=== PATIENT | female | born 1940 | race Caucasian/White ===

== ENCOUNTER 2021-02-09 14:36 | Emergency (ER) | payer MEDICARE, MEDICAID, SELFPAY ==
--- NOTE | ~2021-02-09 | XR_ITS ---
XR foot RT min 3V 02/09/2021 15:18 INDICATION: Right foot pain PROCEDURE: 4 views right foot COMPARISON: No prior studies for comparison. FINDINGS: Fracture, dislocation or subluxation is not identified. Lisfranc joint is intact. The soft tissues appear within normal limits. No foreign bodies are identified. IMPRESSION: 1: NO ACUTE BONE OR JOINT ABNORMALITY IDENTIFIED. Reviewed, dictated and finalized at location A. [employer]
--- NOTE | 2021-02-09 14:48 | ED.GENADULT ---
HPI - General Adult General Chief complaint: Extremity Injury, Lower Stated complaint: Right Foot Injury Time Seen by Provider: 02/09/21 14:48 Source: patient Mode of arrival: ambulatory Limitations: no limitations History of Present Illness HPI narrative: 80-year-old female patient presents to the [facility] with complaints of right foot pain and ankle pain x1 week. Daughter states that she hit her foot on a rocker about a week ago and since then has been having pain. She iced it one time is been taking Tylenol for pain. Coming in today to make sure is not broken. Related Data Home Medications Medication Instructions Recorded Confirmed allopurinol 02/09/21 amlodipine 02/09/21 atorvastatin 02/09/21 calcitriol 02/09/21 hydrochlorothiazide 02/09/21 lisinopril 02/09/21 metoprolol succinate PO 02/09/21 sertraline mg 02/09/21 Allergies Allergy/AdvReac Type Severity Reaction Status Date / Time No Known Allergies Allergy Unverified 06/19/17 23:05 Review of Systems Review of Systems: CONSTITUTIONAL: Denies fever, chills, or sweats. EYES: Denies visual changes, redness, or discharge. ENT: Denies rhinorrhea, congestion, sore throat, or otalgia. CARDIOVASCULAR: Denies chest pain, palpitations, or edema. RESPIRATORY: Denies cough or dyspnea. GASTROINTESTINAL: Denies abdominal pain, nausea, vomiting, or diarrhea. GENITOURINARY: Denies dysuria or hematuria. SKIN: Denies rash or itching. MUSCULOSKELETAL: Denies back pain, joint pain, or myalgia. Positive right foot and ankle pain NEUROLOGIC: Denies headache, numbness, or weakness. PSYCHIATRIC: Denies anxiety or depression. [facility] Past Medical History Medical History (Updated 02/09/21 @ 15:29 by DIEGO Ceballos) Depression Hypercholesterolemia Hypertension Seizures Comments At the time of my signature I agree with nursing past medical history, surgical, social, and family history. There is no relevant family history pertinent to the presenting complaint. Exam Narrative: GENERAL: Well-appearing, well-nourished, and in no acute distress. HEAD: Normocephalic, atraumatic. EYES: PERRLA and EOMI. ENT: Nares clear, no rhinorrhea or epistaxis. Mucous membranes moist. NECK: Supple. No lymphadenopathy CHEST: Clear to auscultation. No respiratory distress. HEART: Regular rate and rhythm. No murmur heard. Normal peripheral pulses. ABDOMEN: Soft, nontender, nondistended, normal active bowel sounds. EXTREMITIES: Patient able to bear weight and ambulate without pain. No surface trauma, ecchymosis, erythema, lesions, ulcers or break in skin integrity. The R foot is without obvious asymmetry or deformity when compared to the L foot. No bony step-off, tender to palpation over the toes, no tenderness over the midfoot or hindfoot, tenderness over the sole. Normal plantar/dorsiflexion, inversion/eversion. Distal motor and neurovascular status are intact SKIN: Warm, dry, no rash. NEURO: No focal deficits. Alert and oriented x3. Course Vital Signs Vital signs: Vital Signs Temperature 36.3 C L 02/09/21 14:52 Pulse Rate 60 02/09/21 14:52 Respiratory Rate 20 02/09/21 14:52 Blood Pressure 115/56 L 02/09/21 14:52 Pulse Oximetry 98 02/09/21 14:52 Temperature 36.3 C L 02/09/21 14:52 Pulse Rate 60 02/09/21 14:52 Respiratory Rate 20 02/09/21 14:52 Blood Pressure 115/56 L 02/09/21 14:52 Pulse Oximetry 98 02/09/21 14:52 Vital signs reviewed Medical Decision Making Differential Diagnosis Differential Diagnosis: Differential diagnosis: Foot fracture, crush injury, compartment syndrome, contusion, sprain, tendinitis,lisfranc sprain or fracture, avulsion fracture, grown toenail, diabetic ulcer. My care for patient is to x-ray patient. Notified patient after x-ray that the x-ray is negative for any acute fractures. Discussed with patient that most likely she just contused her sprain the right foot/ankle. Plan of care is to go ahead and wrap
[2021-02-09 14:52] VITALS: BP 115/56; PULSE 60; RESP 20; TEMP 36.3; O2SAT 98
== END 2021-02-09 15:45 | disposition home or self-care (01) ==
PROVIDERS: Emergency Provider Nurse Practitioner Family; PCP Internal Medicine
DX: S93.401A Sprain of unspecified ligament of right ankle, initial encounter (principal); I10 Essential (primary) hypertension; W22.03XA Walked into furniture, initial encounter
CPT/HCPCS: 73630; 99203; G0463

== ENCOUNTER 2021-08-04 15:29 | Inpatient (IN) | payer MEDICARE, MEDICAID, SELFPAY ==
--- NOTE | ~2021-08-04 | XR_ITS ---
EXAMINATION: XR chest 2V Exam Date/Time: 08/09/2021 12:18 CDT HISTORY: Shortness of breath Comparison: 08/07/2021. CT chest 08/06/2021. RESULT: Lines, tubes, and devices: Intact sternotomy wires. Mediastinal surgical clips. Lungs and pleura: Worsened lobulated right pleural fluid collection, with possible pleural masses. A djacent pulmonary opacities, likely representing atelectasis. Cardiomediastinal silhouette: Stable cardiomediastinal silhouette, including the known thoracic aort ic aneurysm. Other: No acute osseous or upper abdominal finding. IMPRESSION: Moderate volume loculated right pleural effusion, increased since the comparison. Likely pleural mass es. Reviewed, dictated and finalized at location K. IMPRESSION: Moderate volume loculated right pleural effusion, increased since the compariso n. Likely pleural masses.
--- NOTE | ~2021-08-04 | XR_ITS ---
EXAMINATION: [id number] DATE: 08/07/2021 15:47 INDICATION: Status post right thoracentesis TECHNIQUE: frontal view of the chest was obtained. COMPARISON: Chest radiograph dated 08/04/[address] dated 08/06/2021 FINDINGS: Decreased opacities in the right mid and lower lung consistent with decrease in size of a small locul ated right pleural effusion with associated atelectasis post thoracentesis. On prior CT some of the o pacities appear to correspond to pleural-based soft tissue deposits suspicious for metastatic disease . No pneumothorax or left-sided pleural effusion. Heart size is normal. Aneurysmal and tortuous thora cic aorta which displaces portion of the medial left lower lung. Median sternotomy wires and mediasti nal surgical clips are seen, likely from prior coronary artery bypass grafting. Old healed proximal l eft humeral fracture deformity. IMPRESSION: 1. Decrease in size of a small loculated right pleural effusion post thoracentesis with no pneumothor ax. 2. Opacities in the right mid to lower lung zone due in part to atelectasis although on prior CT ther e are pleural-based soft tissue deposits, the largest at the posterior sulcus which is concerning for pleural-based metastatic disease or mesothelioma. 3. Aneurysmal and tortuous thoracic aorta. Reviewed, dictated and finalized at location A. IMPRESSION: 1. Decrease in size of a small loculated right pleural effusion post thoracente sis with no pneumothorax. 2. Opacities in the right mid to lower lung zone due in part to atelectasis alt jeanine on prior CT there are pleural-based soft tissue deposits, the largest at the posterior sulcus which is concerning for pleural-based metastatic disease o r mesothelioma. 3. Aneurysmal and tortuous thoracic aorta.
--- NOTE | ~2021-08-04 | US_ITS ---
EXAMINATION: US thoracentesis DATE: 08/07/2021 16:04 INDICATION: Unilateral right pleural effusion TECHNIQUE: The procedure and its risks and benefits were discussed with the patient in the patient's daughter. Potential risks discussed included bleeding, infection, and pneumothorax. The patient's maria jackson understood the risks and agreed to proceed providing verbal and written consent. The skin was p repped and draped in sterile fashion. 1% lidocaine was used for local anesthesia. Under ultrasound gu idance, a 5 Fr catheter with trochar was advanced into the complex multiloculated right pleural effus ion. Fluid was aspirated. The catheter was removed, and a dressing was applied. There were no immedia te complications. FINDINGS: Ultrasound images demonstrate a multiloculated complex right pleural effusion and the catheter within the fluid. IMPRESSION: 1. Successful ultrasound-guided thoracentesis yielding 700 mL of clear aewliia-myvce-cicjeet fluid. Reviewed, dictated and finalized at location A. IMPRESSION: 1. Successful ultrasound-guided thoracentesis yielding 700 mL of clear reddish -katiuska-colored fluid.
--- NOTE | ~2021-08-04 | US_ITS ---
EXAMINATION: US aorta DATE: 08/05/2021 13:16 INDICATION: Palpable abdominal mass. TECHNIQUE: Grayscale, color Doppler, and pulsed Doppler images of the aorta and common iliac arteries were obtained. COMPARISON: CT abdomen and pelvis 06/20/2017 FINDINGS: The aorta demonstrates a 6.9 cm fusiform aneurysm. The right common iliac artery is normal in caliber . The left common iliac artery is normal in caliber. IMPRESSION: 1. 6.9 cm suprarenal aneurysm of abdominal aorta that measured 6.5 cm on 06/20/2017. Reviewed, dictated and finalized at location B. IMPRESSION: 1. 6.9 cm suprarenal aneurysm of abdominal aorta that measured 6.5 cm on 018.
--- NOTE | ~2021-08-04 | CT_ITS ---
EXAMINATION: CT diagnostic chest wo con DATE: 08/06/2021 10:24 INDICATION: Shortness of breath. Hypoxia. TECHNIQUE: Computed tomography (CT) of the chest was performed without intravenous contrast. Automate d exposure control and iterative reconstruction technique were employed. Exam dose: 150.74 mGy-cm to celestina exam DLP. COMPARISON: 08/04/2021 AP and lateral chest 08/05/2021 pulmonary perfusion scan FINDINGS: There is extensive calcification of the thoracic aorta, great vessels and coronary arteries there is extensive calcification of the subclavian and axillary arteries. Normal diameter of the ascending aorta and aortic arch. There is a saccular aneurysm at the junction of the posterior aortic arch and descending thoracic aorta. There is up to 6.2 cm aneurysm at the cyndi ction of the descending thoracic and abdominal aorta. Up to 6.5 x 6.7 cm proximal abdominal aortic an eurysm. There is severe calcification of the celiac and splenic arteries and calcification of the hep atic artery. Status post sternotomy and coronary artery bypass graft surgery. No hilar or mediastinal mass lesion or lymphadenopathy is evident. There is a large right pleural effusion extending into the right apex and greater and minor fissures. There is associated compressive atelectasis of the right lung. The left lung is clear.. Mild cardiomegaly. There are moderate compression fracture deformities of T6, T8 and T9. Diffuse osteopenia. IMPRESSION: Thoracic and abdominal aortic aneurysm Cardiomegaly Status post sternotomy and coronary bypass graft surgery Very large right pleural effusion with associated right lung compressive atelectasis Impression fractures of T6, T8 and T9; osteopenia Reviewed, dictated and finalized at Location A. Reviewed, dictated and finalized at location A. IMPRESSION: Thoracic and abdominal aortic aneurysm Cardiomegaly Status post sternotomy and coronary bypass graft surgery Very large right pleural effusion with associated right lung compressive atelec tasis Impression fractures of T6, T8 and T9; osteopenia
--- NOTE | ~2021-08-04 | NM_ITS ---
EXAMINATION: NM pulmonary perfusion DATE: 08/05/2021 12:24 INDICATION: Hypoxia TECHNIQUE: 5 mCi Tc-99m MAA by intravenous route. Scintigraphic images of the chest were obtained. COMPARISON: Chest radiograph dated 08/04/[address] abdomen and pelvis dated 06/20/2017 FINDINGS: There is a moderate-sized perfusion defect at the posterior medial left lower lobe which appears to c orrespond to a tortuous and aneurysmal thoracic aorta. Large perfusion defect extending obliquely acr oss the right mid to lower lung along the course of the major fissure and smaller horizontal linear p erfusion defect extending anteriorly along the course of the minor fissure. Additional fusion defects along the anterior, posterior and lateral periphery of the right right mid to lower lung zone. There are corresponding airspace opacities on the radiographs to at least in part to a small right pleural effusion. IMPRESSION: 1. Intermediate probability for pulmonary embolism. Reviewed, dictated and finalized at location A.
--- NOTE | ~2021-08-04 | XR_ITS ---
EXAMINATION: XR chest 2V DATE: 08/04/2021 15:52 INDICATION: Shortness of breath. Chest pain. TECHNIQUE: Frontal and lateral views of the chest were obtained. COMPARISON: CT abdomen and pelvis 06/20/2017 FINDINGS: There are airspace opacities in right mid and lower lung zones. There is a small loculated right pleural effusion. The pneumothorax. The heart size is normal. There is calcified atherosclerosi s of the aorta, which is tortuous. Median sternotomy wires and mediastinal surgical clips are seen, l ikely from prior coronary artery bypass grafting. IMPRESSION: 1. Airspace opacities in right mid and lower lung zones, consistent with atelectasis versus pneumonia . 2. Small loculated right pleural effusion. Reviewed, dictated and finalized at location B. IMPRESSION: 1. Airspace opacities in right mid and lower lung zones, consistent with atelec tasis versus pneumonia. 2. Small loculated right pleural effusion.
[2021-08-04 15:28] VITALS: BP 135/87; PULSE 76; RESP 21; TEMP 36.8; O2SAT 98
--- NOTE | 2021-08-04 15:34 | ECG_ITS ---
Measurements Intervals [place] Rate: 78 P: LA: 0 QRS: 0 QRSD: 86 T: -1 QT: 399 QTc: 455 Interpretive Statements SINUS ARRHY[address]MIA ST DEVIATION AND MODERATE T-WAVE ABNORMALITY, CONSIDER ANTERIOR ISCHEMIA [-0.1+ mV T WAVE IN V3/V4] NO PREVIOUS ECG AVAILABLE FOR COMPARISON Electronically Signed On 08-04-2021 16:34:59 CDT by Tim Brown M.D.
--- NOTE | 2021-08-04 16:07 | ED.SOB ---
HPI - SOB/Dyspnea General Chief Complaint: Shortness of Breath/Dyspnea Stated Complaint: SOB/Right sided pain Time Seen by Provider: 08/04/21 15:57 History of Present Illness HPI Narrative: Pt presents with complaint of SOB for the last two weeks. Pt went to her PCP today and pulse ox in 70's and 80's. Pt denies CP or fever. Pt has dry cough. Pt has some right sided neck pain. Pt vomited three times earlier today. Related Data Home Medications Medication Instructions Recorded Confirmed allopurinol 100 mg tablet 02/09/21 amlodipine 10 mg tablet 02/09/21 atorvastatin 40 mg tablet 02/09/21 calcitriol 0.25 mcg capsule 02/09/21 hydrochlorothiazide 12.5 mg tablet 02/09/21 lisinopril 10 mg tablet 02/09/21 metoprolol succinate 200 mg PO 02/09/21 tablet,extended release 24 hr sertraline 100 mg tablet mg 02/09/21 cefuroxime axetil 250 mg tablet tablet 08/04/21 ciprofloxacin HCl 500 mg tablet tablet 08/04/21 ergocalciferol (vitamin D2) 1,250 cap 08/04/21 mcg (50,000 unit) capsule furosemide 20 mg tablet tablet 08/04/21 rivastigmine 4.6 mg/24 hour patch 08/04/21 transdermal patch (Exelon Patch) Allergies Allergy/AdvReac Type Severity Reaction Status Date / Time No Known Allergies Allergy Unverified 06/19/17 23:05 Review of Systems Review of Systems: All systems reviewed & are unremarkable except as noted in HPI and below PMFSH Past Medical History Medical History (Updated 08/04/21 @ 18:20 by Sb Henriquez III, DO) Depression Hypercholesterolemia Hypertension Seizures Exam Const: General: healthy appearing and no acute distress Nutritional Appearance: well nourished Limitations: other limitations (some dementia) HENMT: Mouth: Yes Normal oral and palatal mucosa present Neck: Neck: normal visual inspection, no lymphadenopathy and no meningeal signs Chest: Chest palpation & inspection: normal inspection of the chest Resp: Effort & Inspection: normal respiratory effort Auscultation: crackles Cardio: Rate: regular rate Rhythm: regular rhythm GI: GI Palp: Yes Soft to palpation Auscultation: normal bowel sounds Skin: General skin exam: normal color Rashes: no rashes Neuro: General: patient oriented x3, moves all extremities, no meningeal signs and no focal motor deficits Speech: normal speech Extrem: General: normal to inspection and no clubbing, cyanosis or edema Psych: Mental Status: mental status grossly normal Affect: normal affect Attitude: cooperative Course Vital Signs Vital signs: Vital Signs Temperature 98.2 F 08/04/21 15:28 Pulse Rate 76 08/04/21 15:28 Respiratory Rate 21 H 08/04/21 15:28 Blood Pressure 135/87 08/04/21 15:28 Pulse Oximetry 98 08/04/21 15:28 Oxygen Delivery Nasal Cannula 08/04/21 15:28 Oxygen Flow Rate 2 08/04/21 15:28 Temperature 98.2 F 08/04/21 15:28 Pulse Rate 76 08/04/21 15:28 Respiratory Rate 21 H 08/04/21 15:28 Blood Pressure 135/87 08/04/21 15:28 Pulse Oximetry 98 08/04/21 15:28 Oxygen Delivery Nasal Cannula 08/04/21 15:28 Oxygen Flow Rate 2 08/04/21 15:28 MDM - SOB/Dyspnea Lab Data Result diagrams: 08/04/21 16:26 08/04/21 16:26 Labs: Lab Results 08/04/21 08/04/21 08/04/21 Range/Units 16:26 16:26 16:26 WBC 8.6 (4.5-10.0) K/mm3 RBC 3.98 L (4.2-5.4) M/mm3 Hgb 11.7 L (12.0-15.0) g/dL Hct 36.5 L (37.0-47.0) % MCV 91.7 (80-100) fl MCH 29.4 (26-34) pg MCHC 32.1 (32-36) g/dl RDW 16.0 H (11.5-14.5) % Plt Count 255 (150-375) k/mm3 MPV 10.0 (7.4-10.4) fl Immature Gran % (Auto) 0.5 (0-0.5) % Neut % (Auto) 74.6 H (45.5-73.1) % Lymph % (Auto) 13.8 L (18.3-44.2) % [place] % (Auto) 8.6 H (2.6-8.5) % Eos % (Auto) 2.2 (0-4.4) % Baso % (Auto) 0.3 (0.2-1.2) % Lymph # (Auto) 1.18 (0.9-3.2) K/mm3 [place] # (Auto) 0.7 H (0.1-0.6) K/mm3 Eos # (Auto) 0.2 (0-0.3) K
[2021-08-04 16:35] LABS: Basophils Percent Auto 0.3 % (0.2-1.2); Eosinophils Absolute Auto 0.2 K/mm3 (0-0.3); Eosinophils Percent Auto 2.2 % (0-4.4); Hematocrit 36.5 % (37.0-47.0); Hemoglobin 11.7 g/dL (12.0-15.0); Immature Granulocyte Absolute 0.04 K/mm3 (0.00-0.031); Immature Granulocyte Percent A 0.5 % (0-0.5); Lymphocytes Absolute Auto 1.18 K/mm3 (0.9-3.2); Lymphocytes Percent Auto 13.8 % (18.3-44.2); Mean Corpuscular HGB Conc 32.1 g/dl (32-36); Mean Corpuscular Hemoglobin 29.4 pg (26-34); Mean Corpuscular Volume 91.7 fl (80-100); Monocytes Absolute Auto 0.7 K/mm3 (0.1-0.6); Monocytes Percent Auto 8.6 % (2.6-8.5); Neutrophils Absolute Auto 6.4 K/mm3 (1.3-6.7); Neutrophils Percent Auto 74.6 % (45.5-73.1); Platelet Count Result 255 k/mm3 (150-375); Red Blood Count 3.98 M/mm3 (4.2-5.4); White Blood Count 8.6 K/mm3 (4.5-10.0)
[2021-08-04 16:53] LABS: Alanine Aminotransferase 17 U/L (6-35); Albumin Level 3.7 g/dL (3.5-5.1); Alkaline Phosphatase 102 U/L (38-126); Anion Gap 9 mmol/L (8-16); Aspartate Amino Transferase 28 U/L (14-36); Bilirubin,Total 0.5 mg/dL (0.2-1.3); Blood Urea Nitrogen 29 mg/dL (7-17); Calcium 9.1 mg/dL (8.4-10.2); Carbon Dioxide 26 mmol/L (22-30); Chloride 105 mmol/L (98-107); Estimated CRCL calculation 24 ml/min; Estimated Glomerular Filt Rate 39; Glucose 114 mg/dL (65-110); Potassium 3.8 mmol/L (3.4-5.0); Sodium 140 mmol/L (137-145)
[2021-08-04 17:01] LABS: NT Pro B Type Natriuretic Pept 1150 pg/mL (5-100)
[2021-08-04] MEDS: NITROGLYCERIN OINTMENT 1 INCH DOSE TRANSDERM (17:04)
[2021-08-04] MEDS: ONDANSETRON INJ 4 MG/2 ML VIAL IV PUSH (17:04)
[2021-08-04] MEDS: ASPIRIN 325 MG TABLET PO (17:04)
[2021-08-04 17:14] LABS: Troponin I 0.015 ng/mL (0.000-0.034)
--- NOTE | 2021-08-04 17:27 | PC.NURSE ---
food tray ordered
[2021-08-04] MEDS: FUROSEMIDE INJ 40 MG/4 ML VIAL IV PUSH (19:09)
[2021-08-04 20:54] LABS: SARS-CoV-2 RNA PCR Negative
--- NOTE | 2021-08-04 20:57 | PM.IMHP ---
H&P: HPI History of Present Illness Date/Time: 08/04/21 20:57 Chief Complaint: Hypoxia Narrative: 81-year-old female with a complex past medical history including chronic kidney disease, CHF, coronary artery disease status CABG and dementia as well as other medical problems who presented to the ER from primary care physician's office due to low oxygen saturations. Source of information comes from patient's family member who also happens be ER nurse, limited past medical records and ER records. The patient herself is a poor historian and is only alert oriented to self and knows that she is in the hospital but does not know the hospital. She knows that her son-in-law works at the hospital. She is oriented to the year. Her son-in-law reports that the patient's memory has gotten progressively worse over the course of the last year. The patient has been having a couple of weeks of increased work of breathing. The she has noticed some a dyspnea on exertion. She denies any orthopnea. She has not had any significant lower some leg swelling. She did fall 2-3 weeks ago in landed on her right arm and side. Since that time she has complained of pain in her right flank. The pain extends across to the left flank as well and is worse when she stands up to walk or sits up. She does seem a little bit more uncomfortable when she takes a deep breath as well. She has had a dry cough. She has not had any fevers or chills. She denies any dysuria or changes in urinary frequency. Patient is noted have some conversational tachypnea. Her daughter told nursing staff that she did not know the patient had history of CHF but the patient is on Lasix at home. Patient denies any changes in urinary frequency but does have a history of bladder prolapse. She reports that she did have a couple of episodes of vomiting today. She has an emesis bag at bedside. She reports a decreased appetite for 3 days. She denies any sore throat or difficulty swallowing. Review of Systems Review of Systems: 12 systems were reviewed with pertinent positives and negatives per HPI. Except as documented in the HPI, all other systems were reviewed and are negative. 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 Bladder prolapse Cholelithiasis Chronic kidney disease, stage 3 Congestive heart failure Dementia Depression Gout Hypercholesterolemia Hypertension Intracranial aneurysm Seizures Vitamin D deficiency Surgical History Surgical History (Updated 08/05/21 @ 02:15 by Sondra Staples DO) History of craniotomy For aneurysm repair Hx of CABG Proximally [id number] Family History Family History Other Unknown family medical history Social History Social History (Updated 08/05/21 @ 02:24 by Sondra Staples DO) Social History: Code status: The patient has 1 daughter stated that the patient was a DNR/DNI. However patient's healthcare power of traveling buyer called nursing staff after patient was admitted and stated the patient should be a full code. Smoking packs per day: 1 Smoking cigarettes per day: 20.0 Smoking status: Former smoker Alcohol intake: never Substance use: never Additional living arrangements comments: She lives with her 1 daughter who is her POA. She a had a total of 6 children. One of her sons recently from a drug overdose. Spiritual care concerns: No Meds Home Medications and Allergies Home Medications Medication Instructions Recorded Confirmed Type allopurinol 100 mg tablet 100 mg PO DAILY 02/09/21 08/05/21 History amlodipine 10 mg tablet 10 mg PO DAILY 02/09/21
[2021-08-04 22:16] LABS: Troponin I 0.017 ng/mL (0.000-0.034)
[2021-08-04 22:43] VITALS: BP 108/83; PULSE 71; RESP 18; O2SAT 92; BMI 26.4
--- NOTE | 2021-08-04 23:35 | ADMGEN ---
This patient, Estefanía Chauhan, was admitted to IMU Room 205-02. Patient/family oriented to hospital policies and general routines including ID bracelet, bed and alarms, visiting hours, pain management, procedures, bathroom and other care routines, personal items, smoking policy, room service/diet, and visiting hours. Information on how to activate the Rapid Response Team has been discussed. Patient/Family are encouraged to report perceived risks to care and to ask questions if they do not understand what they are told or what they should do.
[2021-08-05] VITALS (17 sets, daily range): BP systolic 89–117; BP diastolic 60–72; PULSE 68–93; RESP 16–22; TEMP 36.1–36.6; O2SAT 92–98
--- NOTE | 2021-08-05 | ECHO_ITS ---
Patient Info Name: Estefanía Chauhan Age: 81 years : 1940 Gender: Female Ht: 59 in Wt: 130 lbs BSA: 1.58 m2 HR: 76 bpm BP: 96 / 61 mmHg Heart Rhythm: Sinus Rhythm Technical Quality: Fair Exam Date: 08/05/2021 7:20 AM Exam Location: [facility] Pulmonary Patient Status: Inpatient Admit Date: 08/04/2021 Staff Ordering Physician: Sondra Staples DO Wax Pumper: Elizabeth Sebastian RDCS Attending Provider: Lesvia Benito MD Referring Physician: Jhoan SONG; Exam Type: CA echo doppler color flow Study Info Indications - CHF Complete two-dimensional, color flow and Doppler transthoracic echocardiogram is performed. Summary 1. Complete two-dimensional, color flow and Doppler transthoracic echocardiogram is performed. 2. Normal LV size, mild LVH, sigmoid hypertrophy; hyperdynamic LV systolic function, ejection fraction more than 70%. Grade 1 diastolic dysfunction. Mild left atrial enlargement. Atrial septum deviated to left consistent with elevated right atrial pressures. Mild mitral annular calcification, trace MR. Aortic valve sclerosis, mild stenosis by Doppler, maximum velocity 1.7 m/sec, mean gradient 6 mmHg, calculated aortic valve area 1.9 cm2; mild aortic regurgitation. Mild tricuspid regurgitation, moderate pulmonary hypertension, RVSP 53 mmHg. Mild pulmonic regurgitation. Abdominal aorta appears to be dilated. Consider CT chest/abdomen to evaluate aorta if clinically appropriate. Left Ventricle Left ventricular chamber dimension is normal. Left ventricular systolic function is hyperdynamic, estimated at >70%. There is mildly increased left ventricular wall thickness. The left ventricular diastolic function is grade I diastolic dysfunction. Right Ventricle Right ventricular chamber dimension is normal. Right ventricular systolic function is normal. Aortic Valve There is moderate aortic valve sclerosis. There is mild aortic valve regurgitation. Pulmonic Valve The pulmonic valve is not well visualized. There is mild pulmonic regurgitation. Mitral Valve The mitral valve has normal leaflets. There is trace mitral valve regurgitation. The mitral valve annulus is mildly calcified. Tricuspid Valve The tricuspid valve leaflets are normal. There is mild tricuspid valve regurgitation. Moderate pulmonary hypertension, estimated pulmonary arterial systolic pressure is 53 mmHg. Inferior Vena Cava Normal inferior vena cava with >50% collapse upon inspiration consistent with normal right atrial pressure, 10 mmHg. Aorta The aortic root size at the sinus of Valsalva is normal. The abdominal aorta size is dilated. There is moderate aortic atherosclerosis. Left Ventricular Outflow Tract Name Value Normal LVOT 2D LVOT Diameter 2.0 cm LVOT Doppler LVOT Peak Gradient 5 mmHg LVOT Mean Gradient 2 mmHg LVOT VTI 19 cm LVOT VTI/AV VTI Ratio 0.6 LVOT Stroke Volume 60 ml LVOT CO 4.8 l/min LVOT CI 3
[2021-08-05 01:17] LABS: Troponin I 0.017 ng/mL (0.000-0.034)
[2021-08-05 05:13] LABS: Basophils Percent Auto 0.4 % (0.2-1.2); Eosinophils Absolute Auto 0.4 K/mm3 (0-0.3); Hematocrit 33.3 % (37.0-47.0); Hemoglobin 10.5 g/dL (12.0-15.0); Immature Granulocyte Absolute 0.03 K/mm3 (0.00-0.031); Immature Granulocyte Percent A 0.4 % (0-0.5); Lymphocytes Absolute Auto 1.76 K/mm3 (0.9-3.2); Lymphocytes Percent Auto 22.7 % (18.3-44.2); Mean Corpuscular HGB Conc 31.5 g/dl (32-36); Mean Corpuscular Hemoglobin 28.8 pg (26-34); Mean Corpuscular Volume 91.5 fl (80-100); Mean Platelet Volume 10.6 fl (7.4-10.4); Monocytes Absolute Auto 0.9 K/mm3 (0.1-0.6); Monocytes Percent Auto 11.2 % (2.6-8.5); Neutrophils Absolute Auto 4.7 K/mm3 (1.3-6.7); Neutrophils Percent Auto 60.3 % (45.5-73.1); Platelet Count Result 220 k/mm3 (150-375); Red Blood Count 3.64 M/mm3 (4.2-5.4); Red Cell Distribution Width 15.9 % (11.5-14.5); White Blood Count 7.8 K/mm3 (4.5-10.0)
[2021-08-05 05:27] LABS: Anion Gap 10 mmol/L (8-16); Blood Urea Nitrogen 33 mg/dL (7-17); Calcium 8.7 mg/dL (8.4-10.2); Carbon Dioxide 27 mmol/L (22-30); Chloride 105 mmol/L (98-107); Estimated Glomerular Filt Rate 31; Glucose 96 mg/dL (65-110); Potassium 3.3 mmol/L (3.4-5.0); Sodium 142 mmol/L (137-145)
[2021-08-05] MEDS: ASPIRIN 81 MG ENTERIC TABLET PO (09:31)
[2021-08-05] MEDS: allopurinoL 100 MG TABLET PO (09:31)
[2021-08-05] MEDS: calcitrioL 0.25 MCG CAPSULE PO (09:32)
[2021-08-05] MEDS: ENOXAPARIN 30 MG/0.3 ML SYRINGE SUB-Q (09:32)
[2021-08-05] MEDS: RIVASTIGMINE TARTRATE 4.6 MG PATCH 1 PATCH TRANSDERM (09:32)
--- NOTE | 2021-08-05 12:09 | PM.IMPN ---
Progress Note: A&P Assessment and Plan (1) Hypoxia: Code(s): R09.02 - Hypoxemia Status: Acute Assessment and Plan: Patient presents to the emergency room after she was found to be hypoxic at the doctor's office. Patient was hypoxic requiring supplemental oxygen but did not appear to be in acute respiratory failure clinically. Chest x-ray shows right middle lobe and right lower lobe airspace disease with small right loculated pleural effusion. Atelectasis vs PNA. She was having emesis so consider aspiration. PNA seems less likely since no fever or elevated white count. Consider related to CHF and atelectasis. Could be trauma related given her fall with lung contusin. Wean oxygen as tolerated. Encourage incentive spirometer use. Probably needs CT chest to further determine etiology. VQ scan ordered to exclude PE possibly. (2) Acute exacerbation of CHF (congestive heart failure): Code(s): I50.9 - Heart failure, unspecified Status: Acute Assessment and Plan: BNP 1150. CXR as mentioned above. NTP stopped. Lasix held due to soft BP. Echo showing EF 70%, Grade 1 diastolic dysfunction, mild valvular disease and moderate pulmonary hypertension.? Abdominal aorta appears to be dilated.?Trop negative x3. Wean O2 as tolerated. Stop lasix (3) Abnormal ECG: Code(s): R94.31 - Abnormal electrocardiogram [ECG] [EKG] Status: Acute Assessment and Plan: EKG reviewed showing ST and T wave changes in the anterior leads. Trop negative. Echo as above. No previous EKGs to compare. 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 She was sent to [place] at that time and they are monitoring the aneurysm. Palpable on exam. Check abdominal US. (5) Chronic kidney disease, stage 3: Code(s): N18.30 - Chronic kidney disease, stage 3 unspecified Status: Acute Assessment and Plan: Cr 1.3 on admission and now up to 1.6 with Lasix. Will stop IV Lasix. Follow for now. Resume oral lasix if Cr stable and BP allows. Hold lisinopril. (6) Dementia: Code(s): F03.90 - Unspecified dementia without behavioral disturbance Status: Acute Assessment and Plan: Patietn alert, pleasant but mildly confused. Continue Exelon. Plan DVT Prophylaxis: Lovenox Code status: Full Subjective Date/time seen: 08/05/21 12:09 Interval history: 81yo female with hx of dementia, HTN, CKD and seizures here for shortness of breath. She feels her shortness of breath is better. She is not on oxygen at home. She denies any chest pain, palpitations or cough. No nausea or vomiting. Eating well. She is able to lie flat without feeling short of breath. Called by nurse earlier this morning due to low blood pressure. Lisinopril and Lasix were held. Exam Narrative: AF 97.1 101/60 78 18 98% ra Gen - NARD Chest -bibasilar inspiratory crackles. CV - RRR S1/S2. Telemetry showing sinus rhythm with sinus arrhythmia. Abd -soft. Positive bowel sounds. Palpable mass in the midline that is pulsatile. No bruits. Ext - No pedal edema Psych - Nml mood and affect. Alert, pleasant and cooperative. Skin - Warm and dry Objective Data Vital Signs Vital Signs: Vital Signs - 24 hr 08/04/21 15:28 08/04/21 22:43 08/05/21 00:00 Temperature 98.2 F 97.8 F Pulse Rate 76 71 76 Respiratory Rate 21 H 18 22 H Blood Pressure 135/87 108/83 93/67 L Pulse Oximetry 98 92 92 Oxygen Delivery Nasal Cannula Oxygen Flow Rate 2 08/05/21 00:00 08/05/21 02:00 08/05/21 04:00 Temperature Pulse Rate 74 76 68 Respiratory Rate Blood Pressure Pulse Oximetry Oxygen Delivery Oxygen Flow Rate 08/05/21 04:00 08/05/21 04:00 08/05/21 08
--- NOTE | 2021-08-05 12:41 | ECG_ITS ---
Measurements Intervals [place] Rate: 75 P: -38 GA: 144 QRS: 9 QRSD: 86 T: -14 QT: 386 QTc: 432 Interpretive Statements SINUS RHYTHM WITH OCCASIONAL SUPRAVENTRICULAR PREMATURE COMPLEXES LOW QRS VOLTAGE IN EXTREMITY LEADS [QRS DEFLECTION < 0.5 mV IN LIMB LEADS] ST DEVIATION AND MODERATE T-WAVE ABNORMALITY, CONSIDER ANTERIOR ISCHEMIA [-0.1+ mV T WAVE IN V3/V4] COMPARED TO ECG 08/04/2021 15:52:19 SINUS RHYTHM NOW PRESENT Electronically Signed On 08-05-2021 15:03:31 CDT by Norman Live M.D.
[2021-08-05] MEDS: POTASSIUM CHLORIDE 20 MEQ TABLET PO (13:37)
[2021-08-05] MEDS: ATORVASTATIN 40 MG TABLET PO (18:07)
[2021-08-05] MEDS: SERTRALINE HCL 50 MG TABLET 100 MG PO (18:07)
[2021-08-05] MEDS: METOPROLOL SUCCINATE EXT REL 100 MG TABCR 200 MG PO (18:07)
[2021-08-06] VITALS (12 sets, daily range): BP systolic 91–105; BP diastolic 49–71; PULSE 61–78; RESP 16–24; TEMP 35.8–37; O2SAT 90–100
[2021-08-06 05:08] LABS: Basophils Percent Auto 0.3 % (0.2-1.2); Eosinophils Absolute Auto 0.5 K/mm3 (0-0.3); Eosinophils Percent Auto 5.7 % (0-4.4); Hematocrit 34.7 % (37.0-47.0); Hemoglobin 10.8 g/dL (12.0-15.0); Immature Granulocyte Absolute 0.05 K/mm3 (0.00-0.031); Immature Granulocyte Percent A 0.6 % (0-0.5); Lymphocytes Absolute Auto 1.39 K/mm3 (0.9-3.2); Lymphocytes Percent Auto 15.6 % (18.3-44.2); Mean Corpuscular HGB Conc 31.1 g/dl (32-36); Mean Corpuscular Hemoglobin 28.9 pg (26-34); Mean Corpuscular Volume 92.8 fl (80-100); Mean Platelet Volume 10.1 fl (7.4-10.4); Monocytes Absolute Auto 0.9 K/mm3 (0.1-0.6); Monocytes Percent Auto 9.5 % (2.6-8.5); Neutrophils Absolute Auto 6.1 K/mm3 (1.3-6.7); Neutrophils Percent Auto 68.3 % (45.5-73.1); Platelet Count Result 246 k/mm3 (150-375); Red Blood Count 3.74 M/mm3 (4.2-5.4); Red Cell Distribution Width 15.9 % (11.5-14.5); White Blood Count 8.9 K/mm3 (4.5-10.0)
[2021-08-06 05:25] LABS: Albumin Level 3.1 g/dL (3.5-5.1); Anion Gap 6 mmol/L (8-16); Blood Urea Nitrogen 41 mg/dL (7-17); Calcium 8.7 mg/dL (8.4-10.2); Carbon Dioxide 28 mmol/L (22-30); Chloride 105 mmol/L (98-107); Estimated Glomerular Filt Rate 31; Glucose 100 mg/dL (65-110); Magnesium 1.7 mg/dL (1.6-2.3); Phosphorus 4.4 mg/dL (2.5-4.5); Potassium 3.9 mmol/L (3.4-5.0); Sodium 139 mmol/L (137-145)
[2021-08-06] MEDS: ASPIRIN 81 MG ENTERIC TABLET PO (08:04)
[2021-08-06] MEDS: ENOXAPARIN 30 MG/0.3 ML SYRINGE SUB-Q (08:04)
[2021-08-06] MEDS: RIVASTIGMINE TARTRATE 4.6 MG PATCH 1 PATCH TRANSDERM (08:05)
[2021-08-06] MEDS: allopurinoL 100 MG TABLET PO (08:05)
[2021-08-06] MEDS: calcitrioL 0.25 MCG CAPSULE PO (08:05)
--- NOTE | 2021-08-06 09:38 | PM.IMPN ---
Progress Note: A&P Assessment and Plan (1) Hypoxia: Code(s): R09.02 - Hypoxemia Status: Acute Assessment and Plan: Patient presents to the emergency room after she was found to be hypoxic at the doctor's office. Patient was hypoxic requiring supplemental oxygen but did not appear to be in acute respiratory failure clinically. Chest x-ray shows right middle lobe and right lower lobe airspace disease with small right loculated pleural effusion. Atelectasis vs PNA. She was having emesis so consider aspiration. PNA seems less likely since no fever or elevated white count. Consider related to CHF and atelectasis. Could be trauma related given her fall with lung contusin. Wean oxygen as tolerated. Encourage incentive spirometer use. Probably needs CT chest to further determine etiology. VQ scan with intermediate probability for PE. Moderate-sized perfusion defect at the posterior medial left lower lobe corresponding to a porch was an aneurysmal thoracic aorta. Large perfusion defect extending obliquely across the right mid to lower lung along the course of the major fissure and small or a central linear perfusion defect extending anteriorly along the course of a minor fissure. Additional fusion defects along the anterior, posterior and lateral periphery of the right mid to lower lung zone corresponding to the airspace opacities in the radiograph. CTA cannot be done due to renal dysfunction. Will do CT a diagnostic chest to rule out underlying pneumonia. Will start him on some IV antibiotics for pneumonia. Will obtain blood culture prior to antibiotics (2) Acute exacerbation of CHF (congestive heart failure): Code(s): I50.9 - Heart failure, unspecified Status: Acute Assessment and Plan: BNP 1150. CXR as mentioned above. NTP stopped. Lasix held due to soft BP. Echo showing EF 70%, Grade 1 diastolic dysfunction, mild valvular disease and moderate pulmonary hypertension.? Abdominal aorta appears to be dilated.?Trop negative x3. Wean O2 as tolerated. Stop lasix due to borderline blood pressure (3) Abnormal ECG: Code(s): R94.31 - Abnormal electrocardiogram [ECG] [EKG] Status: Acute Assessment and Plan: EKG reviewed showing ST and T wave changes in the anterior leads. Trop negative. Echo as above. No previous EKGs to compare. 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 She was sent to [place] at that time and they are monitoring the aneurysm. Palpable on exam. 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 Measures 6.5 cm on 06/20/2017. (5) Chronic kidney disease, stage 3: Code(s): N18.30 - Chronic kidney disease, stage 3 unspecified Status: Acute Assessment and Plan: Cr 1.3 on admission and now up to 1.6 with Lasix. Will stop IV Lasix. Follow for now. Resume oral lasix if Cr stable and BP allows. Hold lisinopril. (6) Dementia: Code(s): F03.90 - Unspecified dementia without behavioral disturbance Status: Acute Assessment and Plan: Patietn alert, pleasant but mildly confused. Continue Exelon. Plan DVT Prophylaxis: Lovenox Code status: Full Subjective Date/time seen: 08/06/21 09:38 Interval history: 81yo female with hx of dementia, HTN, CKD and seizures here for shortness of breath. 08/06/2021 blood pressure borderline remains afebrile. On 2 L oxygen via nasal cannula. Which remains stable. Chest x-ray with airspace opacities in right mid and lower lung zones consistent with atelectasis versus pneumonia. Small loculated right pleural effusion. Echocardiogram 08/05/2021 mild LVH sigmoid hypertrophy hyperdynamic LV systolic function EF more than 70% grade 1 d
--- NOTE | 2021-08-06 10:04 | PCSTNOTE ---
Please refer to the Bedside Swallow Evaluation in the EMR. Please note, silent aspiration cannot be ruled out at bedside.
--- NOTE | 2021-08-06 15:43 | PM.CNPUL ---
Assessment and Plan Assessment and plan (1) Hypoxia: Code(s): R09.02 - Hypoxemia Status: Acute (2) Acute respiratory failure with hypoxia: Code(s): J96.01 - Acute respiratory failure with hypoxia Status: Acute Assessment and Plan: This 81-year-old female presented with shortness of breath and hypoxemia following a fall with injury to right rib cage approximately 2-3 weeks ago. Patient has had a large right-sided pleural effusion with some loculation and lung atelectasis. She has no signs of infection. WBC has been normal. She has mild anemia and elevated eosinophils in the peripheral blood. The recent history of fall in conjunction with mild anemia and elevated eosinophils in the peripheral blood may suggest hemorrhagic pleural effusion related to injury. Patient is scheduled for thoracentesis under ultrasound guidance. Have added pleural fluid culture and cytology to pleural fluid tests. further recommendations will depend upon pleural fluid analysis. (3) Pleural effusion: Code(s): J90 - Pleural effusion, not elsewhere classified Status: Acute (4) Dementia: Code(s): F03.90 - Unspecified dementia without behavioral disturbance Status: Acute (5) Abdominal aortic aneurysm: Code(s): I71.4 - Abdominal aortic aneurysm, without rupture Status: Acute History of Present Illness History of Present Illness Consult date: 08/06/21 Chief complaint: chf Narrative: This 81-year-old female presented with shortness of breath and hypoxemia 2 days ago. The patient has history of chronic kidney disease, congestive heart failure, coronary artery disease status post coronary artery bypass grafting and mild dementia. The patient was found to have low oxyhemoglobin saturation at her primary care provider's office. Reportedly the patient fell and injured her right rib cage approximately 2-3 weeks ago. She stated that she had had pain in her right ribcage for approximately 2 weeks with the pain being worse with deep inspiration. She has had no fever chills hemoptysis night sweats chest pain or lower extremity edema. Workup with chest CT showed large right pleural effusion with some loculation and also associated lung atelectasis. The patient has been on a antibiotics for possible pneumonia. She no longer has right chest wall pain. She denied having shortness of breath while she is on supplemental oxygen. Review of Systems Review of Systems: All system review is unremarkable except as stated in H and P and below. 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 Bladder prolapse Cholelithiasis Chronic kidney disease, stage 3 Congestive heart failure Dementia Depression Gout Hypercholesterolemia Hypertension Intracranial aneurysm Seizures Vitamin D deficiency Surgical History Surgical History (Updated 08/05/21 @ 02:15 by Sondra Staples DO) History of craniotomy For aneurysm repair Hx of CABG Proximally [id number] Family History Family History Other Unknown family medical history Social History Social History (Updated 08/05/21 @ 02:24 by Sondra Staples DO) Social History: Code status: The patient has 1 daughter stated that the patient was a DNR/DNI. However patient's healthcare power of estate planning attorney called nursing staff after patient was admitted and stated the patient should be a full code. Smoking packs per day: 1 Smoking cigarettes per day: 20.0 Smoking status: Former smoker Alcohol intake: never Substance use: never Additional living arrangements comments: She lives with her 1 daughter w
[2021-08-06] MEDS: METOPROLOL SUCCINATE EXT REL 100 MG TABCR 200 MG PO (18:31)
[2021-08-06] MEDS: ATORVASTATIN 40 MG TABLET PO (18:31)
[2021-08-06] MEDS: SERTRALINE HCL 50 MG TABLET 100 MG PO (18:32)
[2021-08-07] VITALS (15 sets, daily range): BP systolic 97–138; BP diastolic 59–99; PULSE 64–76; RESP 16–18; TEMP 36.2–36.9; O2SAT 94–100
[2021-08-07 05:12] LABS: Basophils Percent Auto 0.4 % (0.2-1.2); Eosinophils Absolute Auto 0.5 K/mm3 (0-0.3); Eosinophils Percent Auto 5.7 % (0-4.4); Hemoglobin 10.7 g/dL (12.0-15.0); Immature Granulocyte Absolute 0.02 K/mm3 (0.00-0.031); Immature Granulocyte Percent A 0.2 % (0-0.5); Lymphocytes Absolute Auto 1.78 K/mm3 (0.9-3.2); Lymphocytes Percent Auto 19.9 % (18.3-44.2); Mean Corpuscular HGB Conc 31.5 g/dl (32-36); Mean Corpuscular Hemoglobin 28.9 pg (26-34); Mean Corpuscular Volume 91.9 fl (80-100); Mean Platelet Volume 10.4 fl (7.4-10.4); Monocytes Absolute Auto 0.8 K/mm3 (0.1-0.6); Monocytes Percent Auto 9.1 % (2.6-8.5); Neutrophils Absolute Auto 5.8 K/mm3 (1.3-6.7); Neutrophils Percent Auto 64.7 % (45.5-73.1); Platelet Count Result 236 k/mm3 (150-375); Red Cell Distribution Width 15.7 % (11.5-14.5); White Blood Count 8.9 K/mm3 (4.5-10.0)
[2021-08-07 05:30] LABS: Alanine Aminotransferase 13 U/L (6-35); Albumin Level 3.1 g/dL (3.5-5.1); Alkaline Phosphatase 77 U/L (38-126); Anion Gap 4 mmol/L (8-16); Aspartate Amino Transferase 24 U/L (14-36); Bilirubin,Total 0.2 mg/dL (0.2-1.3); Blood Urea Nitrogen 45 mg/dL (7-17); Calcium 8.7 mg/dL (8.4-10.2); Carbon Dioxide 28 mmol/L (22-30); Chloride 107 mmol/L (98-107); Estimated Glomerular Filt Rate 29; Glucose 97 mg/dL (65-110); Potassium 3.8 mmol/L (3.4-5.0); Sodium 139 mmol/L (137-145)
[2021-08-07 10:17] LABS: INR 1.1; Prothrombin Time 13.9 Seconds (11.1-14.7)
[2021-08-07 10:18] LABS: Partial Thromboplastin Time 30.9 SECONDS (22.3-36.8)
[2021-08-07] MEDS: allopurinoL 100 MG TABLET PO (10:50)
[2021-08-07] MEDS: ASPIRIN 81 MG ENTERIC TABLET PO (10:50)
[2021-08-07] MEDS: calcitrioL 0.25 MCG CAPSULE PO (10:50)
[2021-08-07] MEDS: RIVASTIGMINE TARTRATE 4.6 MG PATCH 1 PATCH TRANSDERM (10:50)
--- NOTE | 2021-08-07 12:25 | WPDCDIQUERY2 ---
CDI Query Clarification Request (2) Acute exacerbation of CHF (congestive heart failure): ?Code(s): I50.9 - Heart failure, unspecified ?Status:?Acute ?Assessment and Plan: BNP 1150. CXR as mentioned above. NTP stopped. Lasix held due to soft BP. Echo showing?EF 70%, Grade 1 diastolic dysfunction, mild valvular disease and moderate pulmonary hypertension.? Abdominal aorta appears to be dilated.?Trop negative x3. Wean O2 as tolerated. Stop lasix due to borderline blood pressure Please clarify if diagnosis, Acute exacerbation of Congestive Heart Failure is: Diastolic, systolic, combined, other or unable to determine. For coding purposes lab and procedure results cannot be used as diagnosis. <Fang Alford - Last Filed: 08/07/21 12:28> Clarified Diagnosis (1) Acute on chronic diastolic (congestive) heart failure: Code(s): I50.33 - Acute on chronic diastolic (congestive) heart failure <Fang Alford - Last Filed: 08/07/21 12:28> Status: Acute <Fang Alford - Last Filed: 08/07/21 12:28> Assessment and Plan: most likely patient acute on chronic diastolic congestive heart failure <Lesvia Benito MD - Last Filed: 08/31/21 14:21> Assessment and Plan: most likely patient acute on chronic diastolic congestive heart failure <Lesvai Benito MD - Last Filed: 08/31/21 14:21>
--- NOTE | 2021-08-07 13:08 | PCCCNOTE ---
On 08/07/21, the student, [Linnette Hill], provided care and completed [facility] documentation on this patient. I have reviewed the student's documentation and agree with the findings.
--- NOTE | 2021-08-07 14:24 | PM.IMPN ---
Progress Note: A&P Assessment and Plan (1) Hypoxia: Code(s): R09.02 - Hypoxemia Status: Acute Assessment and Plan: Patient presents to the emergency room after she was found to be hypoxic at the doctor's office. Patient was hypoxic requiring supplemental oxygen but did not appear to be in acute respiratory failure clinically. Chest x-ray shows right middle lobe and right lower lobe airspace disease with small right loculated pleural effusion. Atelectasis vs PNA. She was having emesis so consider aspiration. PNA seems less likely since no fever or elevated white count. Consider related to CHF and atelectasis. Could be trauma related given her fall with lung contusin. Wean oxygen as tolerated. Encourage incentive spirometer use. Probably needs CT chest to further determine etiology. VQ scan with intermediate probability for PE. Moderate-sized perfusion defect at the posterior medial left lower lobe corresponding to a porch was an aneurysmal thoracic aorta. Large perfusion defect extending obliquely across the right mid to lower lung along the course of the major fissure and small or a central linear perfusion defect extending anteriorly along the course of a minor fissure. Additional fusion defects along the anterior, posterior and lateral periphery of the right mid to lower lung zone corresponding to the airspace opacities in the radiograph. CTA cannot be done due to renal dysfunction. Will do CT a diagnostic chest to rule out underlying pneumonia. Will start him on some IV antibiotics for pneumonia. Blood cultures obtained CT chest done which showed very large right pleural effusion. Discussed with daughter who agrees with thoracentesis which is planned for today. Recent history of fall a month ago could be traumatic effusion Pulmonary consultation discussed with Pulmonary 08/07/2021 (2) Acute exacerbation of CHF (congestive heart failure): Code(s): I50.9 - Heart failure, unspecified Status: Acute Assessment and Plan: BNP 1150. CXR as mentioned above. NTP stopped. Lasix held due to soft BP. Echo showing EF 70%, Grade 1 diastolic dysfunction, mild valvular disease and moderate pulmonary hypertension.? Abdominal aorta appears to be dilated.?Trop negative x3. Wean O2 as tolerated. Stop lasix due to borderline blood pressure (3) Abnormal ECG: Code(s): R94.31 - Abnormal electrocardiogram [ECG] [EKG] Status: Acute Assessment and Plan: EKG reviewed showing ST and T wave changes in the anterior leads. Trop negative. Echo as above. No previous EKGs to compare. 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 She was sent to [place] at that time and they are monitoring the aneurysm. Palpable on exam. 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 Measures 6.5 cm on 06/20/2017. (5) Chronic kidney disease, stage 3: Code(s): N18.30 - Chronic kidney disease, stage 3 unspecified Status: Acute Assessment and Plan: Cr 1.3 on admission and now up to 1.6 with Lasix. Will stop IV Lasix. Follow for now. Resume oral lasix if Cr stable and BP allows. Hold lisinopril. (6) Dementia: Code(s): F03.90 - Unspecified dementia without behavioral disturbance Status: Acute Assessment and Plan: Patietn alert, pleasant but mildly confused. Continue Exelon. Plan DVT Prophylaxis: Lovenox Code status: Full Subjective Date/time seen: 08/07/21 14:24 Interval history: 81yo female with hx of dementia, HTN, CKD and seizures here for shortness of breath. 08/06/2021 blood pressure borderline remains afebrile. On 2 L oxygen via nasal cannula. Which remains stable. Chest x-ray with airspace
[2021-08-07 17:40] LABS: Appearance Pleural Fluid Cloudy (Clear); Pleural fluid source Pleural fluid
[2021-08-07 17:41] LABS: Color Pleural Fluid Yellow (Colorless); Lymphocytes Pleural Fluid 47 %; Macrophages Pleural Fluid 1 %; Monocytes Pleural Fluid 17 %; Neutrophils Pleural Fluid 10 % (0-25); Other Cells Pleural Fluid 25 %
[2021-08-07] MEDS: ATORVASTATIN 40 MG TABLET PO (17:46)
[2021-08-07] MEDS: METOPROLOL SUCCINATE EXT REL 100 MG TABCR 200 MG PO (17:46)
[2021-08-07] MEDS: SERTRALINE HCL 50 MG TABLET 100 MG PO (17:46)
[2021-08-08] VITALS (12 sets, daily range): BP systolic 95–127; BP diastolic 60–89; PULSE 58–80; RESP 16–20; TEMP 36.4–37.3; O2SAT 95–100
[2021-08-08 05:10] LABS: Basophils Percent Auto 0.2 % (0.2-1.2); Eosinophils Absolute Auto 0.4 K/mm3 (0-0.3); Eosinophils Percent Auto 3.8 % (0-4.4); Hematocrit 33.9 % (37.0-47.0); Hemoglobin 10.7 g/dL (12.0-15.0); Immature Granulocyte Absolute 0.05 K/mm3 (0.00-0.031); Immature Granulocyte Percent A 0.5 % (0-0.5); Lymphocytes Absolute Auto 1.35 K/mm3 (0.9-3.2); Lymphocytes Percent Auto 14.6 % (18.3-44.2); Mean Corpuscular HGB Conc 31.6 g/dl (32-36); Mean Corpuscular Volume 91.9 fl (80-100); Mean Platelet Volume 10.5 fl (7.4-10.4); Monocytes Absolute Auto 0.9 K/mm3 (0.1-0.6); Monocytes Percent Auto 10.1 % (2.6-8.5); Neutrophils Absolute Auto 6.5 K/mm3 (1.3-6.7); Neutrophils Percent Auto 70.8 % (45.5-73.1); Platelet Count Result 253 k/mm3 (150-375); Red Blood Count 3.69 M/mm3 (4.2-5.4); Red Cell Distribution Width 15.9 % (11.5-14.5); White Blood Count 9.2 K/mm3 (4.5-10.0)
[2021-08-08 05:23] LABS: Alanine Aminotransferase 12 U/L (6-35); Albumin Level 3.2 g/dL (3.5-5.1); Alkaline Phosphatase 75 U/L (38-126); Anion Gap 5 mmol/L (8-16); Aspartate Amino Transferase 23 U/L (14-36); Bilirubin,Total 0.4 mg/dL (0.2-1.3); Blood Urea Nitrogen 47 mg/dL (7-17); Calcium 8.6 mg/dL (8.4-10.2); Carbon Dioxide 30 mmol/L (22-30); Chloride 106 mmol/L (98-107); Estimated Glomerular Filt Rate 33; Glucose 104 mg/dL (65-110); Magnesium 1.9 mg/dL (1.6-2.3); Potassium 3.8 mmol/L (3.4-5.0); Sodium 141 mmol/L (137-145)
[2021-08-08 08:29] LABS: Lactate Dehydrogenase 568 U/L (313-618)
[2021-08-08] MEDS: ENOXAPARIN 30 MG/0.3 ML SYRINGE SUB-Q (09:05)
[2021-08-08] MEDS: ASPIRIN 81 MG ENTERIC TABLET PO (09:05)
[2021-08-08] MEDS: ERGOCALCIFEROL 50,000 UNIT CAPSULE 50000 UNITS PO (09:06)
[2021-08-08] MEDS: allopurinoL 100 MG TABLET PO (09:06)
[2021-08-08] MEDS: calcitrioL 0.25 MCG CAPSULE PO (09:06)
[2021-08-08] MEDS: RIVASTIGMINE TARTRATE 4.6 MG PATCH 1 PATCH TRANSDERM (09:06)
--- NOTE | 2021-08-08 13:43 | PM.PNPUL ---
Progress Note: A&P Assessment and Plan (1) Pleural effusion: Code(s): J90 - Pleural effusion, not elsewhere classified Status: Acute Assessment and Plan: This 81-year-old female presented with shortness of breath and hypoxemia following a fall with injury to right rib cage approximately six weeks ago.? patient has history of dementia. The injury per patient was 2-3 weeks ago but patient's daughter indicated today that the fall was in early June. Patient has had a large right-sided pleural effusion with some loculation and lung atelectasis.? She has no? signs of infection.? WBC has been normal.? Patient has been on Zosyn for possible infection. Pleural fluid analysis showed a mostly lymphocytic effusion. The low number of neutrophils makes empyema unlikely. differential diagnosis includes in addition to traumatic effusion related to fall and also malignancy. Congestive heart failure is unlikely given the loculated pleural effusion. Plan: I would discontinue antibiotic. Await pleural fluid culture. Continue with DVT prophylaxis supplemental oxygen. Had had a lengthy discussion with family regarding further management. will consider discharging patient over the next couple of days with recommendation to return to pulmonary clinic for f/up in approximately 3 weeks. (2) Dementia: Code(s): F03.90 - Unspecified dementia without behavioral disturbance Status: Acute (3) Hypoxia: Code(s): R09.02 - Hypoxemia Status: Acute (4) Abdominal aortic aneurysm: Code(s): I71.4 - Abdominal aortic aneurysm, without rupture Status: Acute Subjective Date/time seen: 08/08/21 13:43 Patient has no new respiratory symptoms. Underwent right thoracentesis yesterday. Remaining on low flow oxygen. Afebrile. Review of Systems Review of Systems: All systems reviewed & are unremarkable except as noted in HPI and below (HPI) Exam Narrative: GENERAL APPEARANCE: Well developed, well nourished, alert and cooperative, and appears to be in no acute distress While in bed breathing oxygen via nasal cannula SKIN: Inspection of the skin reveals no rashes, ulcerations or petechiae. HEENT: Sclerae anicteric and conjunctivae pink and moist. Extraocular movements were intact and pupils were equal. The oral mucosa, hard and soft palate, tongue and posterior pharynx were normal. NECK: Supple. There was no thyroid enlargement, and no tenderness, or masses were felt. CHEST: Normal AP diameter and normal contour without any kyphoscoliosis. no evidence of chest wall bruising. Mild tenderness to palpation right lateral chest at the level of the 6th rib LUNGS: dullness to percussion and decreased breath sounds at right base posteriorly. No wheezing CARDIAC: There was a regular rate and rhythm without any murmurs. ABDOMEN: Soft and nontender with normal bowel sounds. There was no organomegaly. LYMPH NODES: No lymphadenopathy was appreciated in the neck. EXTREMITIES: No cyanosis, clubbing or edema. NEUROLOGIC: Alert and oriented to place. Moving all extremities no gross deficits. Objective Data Vital Signs Vital Signs: Vital Signs - 24 hr 08/07/21 13:59 08/07/21 15:59 08/07/21 16:00 Temperature 36.8 C Pulse Rate 72 70 64 Respiratory Rate 18 17 16 Blood Pressure 138/99 H 108/65 Pulse Oximetry 94 98 96 Oxygen Delivery Nasal Cannula Oxygen Flow Rate 2 08/07/21 16:00 08/07/21 17:46 08/07/21 14:00 Temperature Pulse Rate 68 67 Respiratory Rate Blood Pressure Pulse Oximetry 96 Oxygen Delivery Nasal Cannula Oxygen Flow Rate 2 08/07/21 16:00 08/07/21 18:00 08/07/21 20:00 Temperature 36.2 C L Pulse Rate 66 68 67 Respiratory Rate 16 Blood Pressure 97/67 L Pulse Oximetry 98 Oxygen Delivery Oxygen Flow Rate 08/07/21 20:00 08/07/21 20:00 08/08/21 00:00 Temperature 37.1 C Pulse Rate 67 75 Respiratory Rate 16 Blood Pressure 95/61 L Pulse Oximetry 98 98 Oxygen
--- NOTE | 2021-08-08 16:26 | PM.IMPN ---
Progress Note: A&P Assessment and Plan (1) Hypoxia: Code(s): R09.02 - Hypoxemia Status: Acute Assessment and Plan: Patient presents to the emergency room after she was found to be hypoxic at the doctor's office. Patient was hypoxic requiring supplemental oxygen but did not appear to be in acute respiratory failure clinically. Chest x-ray shows right middle lobe and right lower lobe airspace disease with small right loculated pleural effusion. Atelectasis vs PNA. She was having emesis so consider aspiration. PNA seems less likely since no fever or elevated white count. Consider related to CHF and atelectasis. Could be trauma related given her fall with lung contusin. Wean oxygen as tolerated. Encourage incentive spirometer use. Probably needs CT chest to further determine etiology. VQ scan with intermediate probability for PE. Moderate-sized perfusion defect at the posterior medial left lower lobe corresponding to a porch was an aneurysmal thoracic aorta. Large perfusion defect extending obliquely across the right mid to lower lung along the course of the major fissure and small or a central linear perfusion defect extending anteriorly along the course of a minor fissure. Additional fusion defects along the anterior, posterior and lateral periphery of the right mid to lower lung zone corresponding to the airspace opacities in the radiograph. CTA cannot be done due to renal dysfunction. Will do CT a diagnostic chest to rule out underlying pneumonia. Will start him on some IV antibiotics for pneumonia. Blood cultures obtained CT chest done which showed very large right pleural effusion. Recent history of fall a month ago could be traumatic effusion Pulmonary consultation discussed with Pulmonary 08/07/2021 Status post thoracentesis 08/07/2021. Pleural fluid analysis with mostly lymphocytic effusion. Likely traumatic or malignancy. There are been noted loculated pleural effusion as well. Await pleural fluid culture. Discussed with Pulmonary suggest stopping antibiotics at this point. As this is less likely to be due to infection Needs follow-up chest x-ray ensure no reaccumulation (2) Acute exacerbation of CHF (congestive heart failure): Code(s): I50.9 - Heart failure, unspecified Status: Acute Assessment and Plan: BNP 1150. CXR as mentioned above. NTP stopped. Lasix held due to soft BP. Echo showing EF 70%, Grade 1 diastolic dysfunction, mild valvular disease and moderate pulmonary hypertension.? Abdominal aorta appears to be dilated.?Trop negative x3. Wean O2 as tolerated. Stop lasix due to borderline blood pressure (3) Abnormal ECG: Code(s): R94.31 - Abnormal electrocardiogram [ECG] [EKG] Status: Acute Assessment and Plan: EKG reviewed showing ST and T wave changes in the anterior leads. Trop negative. Echo as above. No previous EKGs to compare. 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 She was sent to [facility] at that time and they are monitoring the aneurysm. Palpable on exam. 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 Measures 6.5 cm on 06/20/2017. (5) Chronic kidney disease, stage 3: Code(s): N18.30 - Chronic kidney disease, stage 3 unspecified Status: Acute Assessment and Plan: Cr 1.3 on admission and now up to 1.6 with Lasix. Will stop IV Lasix. Follow for now. Resume oral lasix if Cr stable and BP allows. Hold lisinopril. (6) Dementia: Code(s): F03.90 - Unspecified dementia without behavioral disturbance Status: Acute Assessment and Plan: Patietn alert, pleasant but mildly confused. Continue Exelon. Plan DVT Prophylaxis: Lovenox Code status: Full
[2021-08-08] MEDS: SERTRALINE HCL 50 MG TABLET 100 MG PO (17:22)
[2021-08-08] MEDS: METOPROLOL SUCCINATE EXT REL 100 MG TABCR 200 MG PO (17:22)
[2021-08-08] MEDS: ATORVASTATIN 40 MG TABLET PO (17:22)
[2021-08-09 05:41] LABS: Basophils Percent Auto 0.3 % (0.2-1.2); Eosinophils Absolute Auto 0.3 K/mm3 (0-0.3); Eosinophils Percent Auto 2.6 % (0-4.4); Hematocrit 35.1 % (37.0-47.0); Immature Granulocyte Absolute 0.05 K/mm3 (0.00-0.031); Immature Granulocyte Percent A 0.5 % (0-0.5); Lymphocytes Absolute Auto 1.33 K/mm3 (0.9-3.2); Lymphocytes Percent Auto 13.4 % (18.3-44.2); Mean Corpuscular HGB Conc 31.3 g/dl (32-36); Mean Corpuscular Hemoglobin 28.9 pg (26-34); Mean Corpuscular Volume 92.1 fl (80-100); Mean Platelet Volume 10.3 fl (7.4-10.4); Monocytes Absolute Auto 0.9 K/mm3 (0.1-0.6); Monocytes Percent Auto 9.1 % (2.6-8.5); Neutrophils Absolute Auto 7.4 K/mm3 (1.3-6.7); Neutrophils Percent Auto 74.1 % (45.5-73.1); Platelet Count Result 238 k/mm3 (150-375); Red Blood Count 3.81 M/mm3 (4.2-5.4); Red Cell Distribution Width 15.8 % (11.5-14.5)
[2021-08-09 05:54] LABS: Alanine Aminotransferase 12 U/L (6-35); Albumin Level 3.2 g/dL (3.5-5.1); Alkaline Phosphatase 71 U/L (38-126); Anion Gap 6 mmol/L (8-16); Aspartate Amino Transferase 24 U/L (14-36); Bilirubin,Total 0.5 mg/dL (0.2-1.3); Blood Urea Nitrogen 39 mg/dL (7-17); Calcium 8.8 mg/dL (8.4-10.2); Carbon Dioxide 27 mmol/L (22-30); Chloride 108 mmol/L (98-107); Estimated Glomerular Filt Rate 43; Glucose 101 mg/dL (65-110); Magnesium 1.9 mg/dL (1.6-2.3); Potassium 3.5 mmol/L (3.4-5.0); Sodium 141 mmol/L (137-145)
[2021-08-09 08:00] VITALS: O2SAT 94
[2021-08-09] MEDS: RIVASTIGMINE TARTRATE 4.6 MG PATCH 1 PATCH TRANSDERM (09:46)
[2021-08-09] MEDS: calcitrioL 0.25 MCG CAPSULE PO (09:46)
[2021-08-09] MEDS: ASPIRIN 81 MG ENTERIC TABLET PO (09:46)
[2021-08-09] MEDS: ENOXAPARIN 30 MG/0.3 ML SYRINGE SUB-Q (09:46)
[2021-08-09] MEDS: allopurinoL 100 MG TABLET PO (09:46)
--- NOTE | 2021-08-09 10:16 | P.PNIM_ITS ---
Progress Note: A&P Assessment and Plan (1) Hypoxia: Code(s): R09.02 - Hypoxemia Status: Acute Assessment and Plan: Patient presents to the emergency room after she was found to be hypoxic at the doctor's office. Patient was hypoxic requiring supplemental oxygen but did not appear to be in acute respiratory failure clinically. Chest x-ray shows right middle lobe and right lower lobe airspace disease with small right loculated pleural effusion. Atelectasis vs PNA. She was having emesis so consider aspiration. PNA seems less likely since no fever or elevated white count. Consider related to CHF and atelectasis. Could be trauma related given her fall with lung contusin. Wean oxygen as tolerated. Encourage incentive spirometer use. Probably needs CT chest to further determine etiology. VQ scan with intermediate probability for PE. Moderate-sized perfusion defect at the posterior medial left lower lobe corresponding to a porch was an aneurysmal thoracic aorta. Large perfusion defect extending obliquely across the right mid to lower lung along the course of the major fissure and small or a central linear perfusion defect extending anteriorly along the course of a minor fissure. Additional fusion defects along the anterior, posterior and lateral periphery of the right mid to lower lung zone corresponding to the airspace opacities in the radiograph. CTA cannot be done due to renal dysfunction. Will do CT a diagnostic chest to rule out underlying pneumonia. Will start him on some IV antibiotics for pneumonia. Blood cultures obtained CT chest done which showed very large right pleural effusion. Recent history of fall a month ago could be traumatic effusion Pulmonary consultation discussed with Pulmonary 08/07/2021 Status post thoracentesis 08/07/2021. Pleural fluid analysis with mostly lymphocytic effusion. Likely traumatic or malignancy. There are been noted loculated pleural effusion as well. Await pleural fluid culture. Discussed with Pulmonary suggest stopping antibiotics at this point. As this is less likely to be due to infection Needs follow-up chest x-ray ensure no reaccumulation Recheck chest x-ray today (2) Acute exacerbation of CHF (congestive heart failure): Code(s): I50.9 - Heart failure, unspecified Status: Acute Assessment and Plan: BNP 1150. CXR as mentioned above. NTP stopped. Lasix held due to soft BP. Echo showing EF 70%, Grade 1 diastolic dysfunction, mild valvular disease and moderate pulmonary hypertension.? Abdominal aorta appears to be dilated.?Trop negative x3. Wean O2 as tolerated. Stop lasix due to borderline blood pressure (3) Abnormal ECG: Code(s): R94.31 - Abnormal electrocardiogram [ECG] [EKG] Status: Acute Assessment and Plan: EKG reviewed showing ST and T wave changes in the anterior leads. Trop negative. Echo as above. No previous EKGs to compare. 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 She was sent to [place] at that time and they are monitoring the aneurysm. Palpable on exam. 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 Measures 6.5 cm on 06/20/2017. (5) Chronic kidney disease, stage 3: Code(s): N18.30 - Chronic kidney disease, stage 3 unspecified Status: Acute Assessment and Plan: Cr 1.3 on admission and now up to 1.6 with Lasix. Will stop IV Lasix. Follow for now. Resume oral lasix if Cr
--- NOTE | 2021-08-09 10:32 | PM.PNPUL ---
Progress Note: A&P Assessment and Plan (1) Pleural effusion: Code(s): J90 - Pleural effusion, not elsewhere classified Status: Acute Assessment and Plan: This 81-year-old female presented with shortness of breath and hypoxemia following a fall with injury to right rib cage approximately six weeks ago.? patient has history of dementia. The injury per patient was 2-3 weeks ago but patient's daughter indicated today that the fall was in early June. Patient has had a large right-sided pleural effusion with some loculation and lung atelectasis.? She has no? signs of infection.? WBC has been normal.? Pleural fluid analysis showed a mostly lymphocytic effusion. The low number of neutrophils makes empyema unlikely. differential diagnosis includes in addition to traumatic effusion related to fall also malignancy. Congestive heart failure is unlikely given the loculated pleural effusion. Pleural fluid culture negative. Plan: Await fluid cytology. Continue with DVT prophylaxis supplemental oxygen. repeat two view chest x-ray. Had lengthy discussion with family regarding further management. will consider discharging patient over the next couple of days with recommendation to return to pulmonary clinic for f/up in approximately 3 weeks. (2) Dementia: Code(s): F03.90 - Unspecified dementia without behavioral disturbance Status: Acute (3) Hypoxia: Code(s): R09.02 - Hypoxemia Status: Acute (4) Abdominal aortic aneurysm: Code(s): I71.4 - Abdominal aortic aneurysm, without rupture Status: Acute Subjective Date/time seen: 08/09/21 10:32 Patient has no new respiratory symptoms. Remaining on supplemental oxygen at 1 liter/minute. Review of Systems Review of Systems: All systems reviewed & are unremarkable except as noted in HPI and below (HPI) Exam Narrative: GENERAL APPEARANCE: Well developed, well nourished, alert and cooperative, and appears to be in no acute distress While in bed breathing oxygen via nasal cannula SKIN: Inspection of the skin reveals no rashes, ulcerations or petechiae. HEENT: Sclerae anicteric and conjunctivae pink and moist. Extraocular movements were intact and pupils were equal. The oral mucosa, hard and soft palate, tongue and posterior pharynx were normal. NECK: Supple. There was no thyroid enlargement, and no tenderness, or masses were felt. CHEST: Normal AP diameter and normal contour without any kyphoscoliosis. no evidence of chest wall bruising. Mild tenderness to palpation right lateral chest at the level of the 6th rib LUNGS: dullness to percussion and decreased breath sounds at right base posteriorly. Crackles also present at right base posteriorly. No wheezing CARDIAC: There was a regular rate and rhythm without any murmurs. ABDOMEN: Soft and nontender with normal bowel sounds. There was no organomegaly. LYMPH NODES: No lymphadenopathy was appreciated in the neck. EXTREMITIES: No cyanosis, clubbing or edema. NEUROLOGIC: Alert and oriented to place. Moving all extremities no gross deficits. Objective Data Vital Signs Vital Signs: Vital Signs - 24 hr 08/08/21 11:57 08/08/21 15:47 08/08/21 18:37 Temperature 36.6 C 37.3 C 36.5 C Pulse Rate 69 77 68 Respiratory Rate 20 16 16 Blood Pressure 101/65 108/62 103/74 Pulse Oximetry 97 96 97 Oxygen Delivery Oxygen Flow Rate 08/08/21 20:44 08/08/21 20:00 Temperature 36.6 C Pulse Rate 65 65 Respiratory Rate 18 18 Blood Pressure 127/89 Pulse Oximetry 97 97 Oxygen Delivery Nasal Cannula Oxygen Flow Rate 1 Intake/Output Intake/Output: Intake & Output 08/06/21 08/07/21 08/08/21 08/09/21 23:59 23:59 23:59 23:59 Intake Total 1075 880 810 240 Output Total 50 1500 1375 Balance 5647 -232 -730 240 Meds/Results Medications: Active Medications Generic Name Dose Route Start Last Admin Trade Name Freq PRN Reason Stop Dose Admin Allopurinol 100 mg 08/05/21 09:00 08/09/21
[2021-08-09 14:00] VITALS: BP 118/70; PULSE 65; RESP 20; TEMP 36.2; O2SAT 97
[2021-08-09] MEDS: ATORVASTATIN 40 MG TABLET PO (17:26)
[2021-08-09] MEDS: SERTRALINE HCL 50 MG TABLET 100 MG PO (17:26)
[2021-08-09 17:29] VITALS: PULSE 65
[2021-08-09] MEDS: METOPROLOL SUCCINATE EXT REL 100 MG TABCR 200 MG PO (17:29)
[2021-08-09 19:45] VITALS: O2SAT 97
[2021-08-09 20:00] VITALS: PULSE 65; RESP 20; O2SAT 97
[2021-08-10] VITALS: BP 149/87; PULSE 86; RESP 16; TEMP 36.9; O2SAT 97
[2021-08-10 05:38] LABS: Basophils Percent Auto 0.3 % (0.2-1.2); Eosinophils Absolute Auto 0.2 K/mm3 (0-0.3); Eosinophils Percent Auto 2.4 % (0-4.4); Hematocrit 34.4 % (37.0-47.0); Hemoglobin 10.8 g/dL (12.0-15.0); Immature Granulocyte Absolute 0.04 K/mm3 (0.00-0.031); Immature Granulocyte Percent A 0.5 % (0-0.5); Lymphocytes Absolute Auto 1.37 K/mm3 (0.9-3.2); Mean Corpuscular HGB Conc 31.4 g/dl (32-36); Mean Corpuscular Volume 92.5 fl (80-100); Mean Platelet Volume 10.2 fl (7.4-10.4); Monocytes Absolute Auto 0.9 K/mm3 (0.1-0.6); Monocytes Percent Auto 9.9 % (2.6-8.5); Neutrophils Absolute Auto 6.1 K/mm3 (1.3-6.7); Neutrophils Percent Auto 70.9 % (45.5-73.1); Platelet Count Result 258 k/mm3 (150-375); Red Blood Count 3.72 M/mm3 (4.2-5.4); Red Cell Distribution Width 15.8 % (11.5-14.5); White Blood Count 8.6 K/mm3 (4.5-10.0)
[2021-08-10 05:44] LABS: Alanine Aminotransferase 13 U/L (6-35); Albumin Level 3.1 g/dL (3.5-5.1); Alkaline Phosphatase 66 U/L (38-126); Anion Gap 3 mmol/L (8-16); Aspartate Amino Transferase 24 U/L (14-36); Bilirubin,Total 0.4 mg/dL (0.2-1.3); Blood Urea Nitrogen 37 mg/dL (7-17); Calcium 8.9 mg/dL (8.4-10.2); Carbon Dioxide 31 mmol/L (22-30); Chloride 105 mmol/L (98-107); Estimated Glomerular Filt Rate 43; Glucose 105 mg/dL (65-110); Magnesium 1.9 mg/dL (1.6-2.3); Potassium 3.9 mmol/L (3.4-5.0); Sodium 139 mmol/L (137-145)
[2021-08-10 08:00] VITALS: O2SAT 95
[2021-08-10] MEDS: RIVASTIGMINE TARTRATE 4.6 MG PATCH 1 PATCH TRANSDERM (09:22)
[2021-08-10] MEDS: ENOXAPARIN 30 MG/0.3 ML SYRINGE SUB-Q (09:22)
[2021-08-10] MEDS: calcitrioL 0.25 MCG CAPSULE PO (09:22)
[2021-08-10] MEDS: allopurinoL 100 MG TABLET PO (09:23)
[2021-08-10] MEDS: ASPIRIN 81 MG ENTERIC TABLET PO (09:23)
--- NOTE | 2021-08-10 10:17 | PM.PNPUL ---
Progress Note: A&P Assessment and Plan (1) Pleural effusion: Code(s): J90 - Pleural effusion, not elsewhere classified Status: Acute Assessment and Plan: This 81-year-old female presented with shortness of breath and hypoxemia following a fall with injury to right rib cage approximately six weeks ago.? patient has history of dementia. The injury per patient was 2-3 weeks ago but patient's daughter indicated today that the fall was in early June. Patient has had a large right-sided pleural effusion with some loculation and lung atelectasis.? She has no? signs of infection.? WBC has been normal.? Pleural fluid analysis showed a mostly lymphocytic effusion. The low number of neutrophils makes empyema unlikely. differential diagnosis includes in addition to traumatic effusion related to fall also malignancy. Congestive heart failure is unlikely given the loculated pleural effusion. repeat chest x-ray done yesterday showed increasing pleural effusion possibly new loculation. Pleural fluid culture negative. Plan: Await fluid cytology. Continue with DVT prophylaxis supplemental oxygen. In view of worsening pleural effusion we will proceed with referral to thoracic surgery for VATS. (2) Dementia: Code(s): F03.90 - Unspecified dementia without behavioral disturbance Status: Acute (3) Hypoxia: Code(s): R09.02 - Hypoxemia Status: Acute (4) Abdominal aortic aneurysm: Code(s): I71.4 - Abdominal aortic aneurysm, without rupture Status: Acute Subjective Date/time seen: 08/10/21 10:17 Patient has no new respiratory symptoms. Supplemental oxygen was increased to 2 liters/minute over the last 24 hours. She continues to have shortness of breath with activities. Afebrile. Review of Systems Review of Systems: All systems reviewed & are unremarkable except as noted in HPI and below (HPI) Exam Narrative: GENERAL APPEARANCE: Well developed, well nourished, alert and cooperative, and appears to be in no acute distress While in bed breathing oxygen via nasal cannula At 2 liters/minute SKIN: Inspection of the skin reveals no rashes, ulcerations or petechiae. HEENT: Sclerae anicteric and conjunctivae pink and moist. Extraocular movements were intact and pupils were equal. The oral mucosa, hard and soft palate, tongue and posterior pharynx were normal. NECK: Supple. There was no thyroid enlargement, and no tenderness, or masses were felt. CHEST: Normal AP diameter and normal contour without any kyphoscoliosis. no evidence of chest wall bruising. LUNGS: dullness to percussion and decreased breath sounds at right base posteriorly. Crackles also present at right base posteriorly. No wheezing CARDIAC: There was a regular rate and rhythm without any murmurs. ABDOMEN: Soft and nontender with normal bowel sounds. There was no organomegaly. LYMPH NODES: No lymphadenopathy was appreciated in the neck. EXTREMITIES: No cyanosis, clubbing or edema. NEUROLOGIC: Alert and oriented to place. Moving all extremities no gross deficits. Objective Data Vital Signs Vital Signs: Vital Signs - 24 hr 08/09/21 14:00 08/09/21 17:29 08/09/21 20:00 Temperature 36.2 C L Pulse Rate 65 65 65 Respiratory Rate 20 20 Blood Pressure 118/70 Pulse Oximetry 97 97 Oxygen Delivery Nasal Cannula Oxygen Flow Rate 2 08/10/21 00:00 08/09/21 19:45 Temperature 36.9 C Pulse Rate 86 Respiratory Rate 16 Blood Pressure 149/87 H Pulse Oximetry 97 97 Oxygen Delivery Nasal Cannula Oxygen Flow Rate 2 Intake/Output Intake/Output: Intake & Output 08/07/21 08/08/21 08/09/21 08/10/21 23:59 23:59 23:59 23:59 Intake Total 880 810 840 120 Output Total 1500 1375 900 [facility] -[phone] Meds/Results Medications: Active Medications Generic Name Dose Route Start Last Admin Trade Name Freq PRN Reason Stop Dose Admin Allopurinol 100 mg 08/05/21 09:00 08/10/21 09:23 Allopurinol
--- NOTE | 2021-08-10 13:52 | PM.IMPN ---
Progress Note: A&P Assessment and Plan (1) Hypoxia: Code(s): R09.02 - Hypoxemia Status: Acute Assessment and Plan: Patient presents to the emergency room after she was found to be hypoxic at the doctor's office. Patient was hypoxic requiring supplemental oxygen but did not appear to be in acute respiratory failure clinically. Chest x-ray shows right middle lobe and right lower lobe airspace disease with small right loculated pleural effusion. Atelectasis vs PNA. She was having emesis so consider aspiration. PNA seems less likely since no fever or elevated white count. Consider related to CHF and atelectasis. Could be trauma related given her fall with lung contusin. Wean oxygen as tolerated. Encourage incentive spirometer use. Probably needs CT chest to further determine etiology. VQ scan with intermediate probability for PE. Moderate-sized perfusion defect at the posterior medial left lower lobe corresponding to a porch was an aneurysmal thoracic aorta. Large perfusion defect extending obliquely across the right mid to lower lung along the course of the major fissure and small or a central linear perfusion defect extending anteriorly along the course of a minor fissure. Additional fusion defects along the anterior, posterior and lateral periphery of the right mid to lower lung zone corresponding to the airspace opacities in the radiograph. CTA cannot be done due to renal dysfunction. Will do CT a diagnostic chest to rule out underlying pneumonia. Will start him on some IV antibiotics for pneumonia. Blood cultures obtained CT chest done which showed very large right pleural effusion. Recent history of fall a month ago could be traumatic effusion Pulmonary consultation discussed with Pulmonary 08/07/2021 Status post thoracentesis 08/07/2021. Pleural fluid analysis with mostly lymphocytic effusion. Likely traumatic or malignancy. There are been noted loculated pleural effusion as well. Await pleural fluid culture. Discussed with Pulmonary suggest stopping antibiotics at this point. As this is less likely to be due to infection Needs follow-up chest x-ray ensure no reaccumulation Recheck chest x-ray 08/09/21 revealed moderate volume loculated right pleural effusion increased since the comparison on 08/07/2021 likely pleural masses. Pulmonary suggest she will need VATS from thoracic surgery and hence needs to be transferred Discussed with her daughter Charo of the phone and agreeable for the transfer Called transfer line at [facility] and discussed with the hospitalist at [facility] and and she is excepted there awaiting bed availability (2) Acute exacerbation of CHF (congestive heart failure): Code(s): I50.9 - Heart failure, unspecified Status: Acute Assessment and Plan: BNP 1150. CXR as mentioned above. NTP stopped. Lasix held due to soft BP. Echo showing EF 70%, Grade 1 diastolic dysfunction, mild valvular disease and moderate pulmonary hypertension.? Abdominal aorta appears to be dilated.?Trop negative x3. Wean O2 as tolerated. Stop lasix due to borderline blood pressure (3) Abnormal ECG: Code(s): R94.31 - Abnormal electrocardiogram [ECG] [EKG] Status: Acute Assessment and Plan: EKG reviewed showing ST and T wave changes in the anterior leads. Trop negative. Echo as above. No previous EKGs to compare. 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 She was sent to [place] at that time and they are monitoring the aneurysm. Palpable on exam. 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 Measures 6.5 cm on 06/20/2017. (5) Chronic kidney disease, stage 3: Code(s): N18.30 - Chronic kidney disease, stage 3 u
[2021-08-10 14:00] VITALS: BP 116/75; PULSE 65; RESP 18; TEMP 36.3; O2SAT 100
[2021-08-10 18:03] VITALS: PULSE 65
[2021-08-10] MEDS: SERTRALINE HCL 50 MG TABLET 100 MG PO (18:03)
[2021-08-10] MEDS: METOPROLOL SUCCINATE EXT REL 100 MG TABCR 200 MG PO (18:03)
[2021-08-10] MEDS: ATORVASTATIN 40 MG TABLET PO (18:03)
[2021-08-10 19:48] LABS: Amylase, Pleural Fluid 18 U/L
[2021-08-10 19:55] VITALS: PULSE 65; RESP 18; O2SAT 100
[2021-08-10 20:35] VITALS: BP 130/79; PULSE 64; RESP 18; TEMP 36.2; O2SAT 98
[2021-08-11 02:56] VITALS: PULSE 65; RESP 18; O2SAT 98
[2021-08-11 05:29] VITALS: BP 134/80; PULSE 63; RESP 16; TEMP 36.6; O2SAT 95
[2021-08-11 05:39] LABS: Basophils Percent Auto 0.3 % (0.2-1.2); Eosinophils Absolute Auto 0.3 K/mm3 (0-0.3); Hematocrit 34.9 % (37.0-47.0); Hemoglobin 10.5 g/dL (12.0-15.0); Immature Granulocyte Absolute 0.05 K/mm3 (0.00-0.031); Immature Granulocyte Percent A 0.6 % (0-0.5); Lymphocytes Percent Auto 16.8 % (18.3-44.2); Mean Corpuscular HGB Conc 30.1 g/dl (32-36); Mean Corpuscular Hemoglobin 28.7 pg (26-34); Mean Corpuscular Volume 95.4 fl (80-100); Mean Platelet Volume 10.2 fl (7.4-10.4); Monocytes Absolute Auto 0.8 K/mm3 (0.1-0.6); Monocytes Percent Auto 9.3 % (2.6-8.5); Neutrophils Absolute Auto 6.2 K/mm3 (1.3-6.7); Platelet Count Result 257 k/mm3 (150-375); Red Blood Count 3.66 M/mm3 (4.2-5.4); Red Cell Distribution Width 15.8 % (11.5-14.5); White Blood Count 8.9 K/mm3 (4.5-10.0)
[2021-08-11 05:52] LABS: Alanine Aminotransferase 14 U/L (6-35); Albumin Level 3.2 g/dL (3.5-5.1); Alkaline Phosphatase 71 U/L (38-126); Anion Gap 5 mmol/L (8-16); Aspartate Amino Transferase 26 U/L (14-36); Bilirubin,Total 0.3 mg/dL (0.2-1.3); Blood Urea Nitrogen 39 mg/dL (7-17); Calcium 9.1 mg/dL (8.4-10.2); Carbon Dioxide 27 mmol/L (22-30); Chloride 107 mmol/L (98-107); Estimated Glomerular Filt Rate 43; Glucose 100 mg/dL (65-110); Potassium 3.9 mmol/L (3.4-5.0); Sodium 139 mmol/L (137-145)
[2021-08-11 08:45] VITALS: O2SAT 95
[2021-08-11] MEDS: RIVASTIGMINE TARTRATE 4.6 MG PATCH 1 PATCH TRANSDERM (08:53)
[2021-08-11] MEDS: ENOXAPARIN 30 MG/0.3 ML SYRINGE SUB-Q (08:53)
[2021-08-11] MEDS: calcitrioL 0.25 MCG CAPSULE PO (08:54)
[2021-08-11] MEDS: allopurinoL 100 MG TABLET PO (08:54)
[2021-08-11] MEDS: ASPIRIN 81 MG ENTERIC TABLET PO (08:54)
--- NOTE | 2021-08-11 11:01 | PM.TDS ---
Transfer Discharge Sum: Prov Provider Date of admission: 08/05/21 10:51 Primary care physician: Xavi Wright, Admitting clinician: Lesvia Benito MD Consults: 08/06/21 15:01 Consult to Physician Routine Comment: Called office and notified them of consult Consulting Provider: Farzad Mcclure call or contact centre manager/MD group to consult: Pulmonary Reason for consultation: Large pleural effusion Has provider been notified: Yes DS: Admitting Diagnosis Discharge Date 08/11/2021 Admitting Diagnosis shortness of breath DS: Discharge Diagnosis Discharge Diagnosis (1) Hypoxia: Code(s): R09.02 - Hypoxemia Status: Acute Assessment and Plan: Patient presents to the emergency room after she was found to be hypoxic at the doctor's office. Patient was hypoxic requiring supplemental oxygen but did not appear to be in acute respiratory failure clinically. Chest x-ray shows right middle lobe and right lower lobe airspace disease with small right loculated pleural effusion. Atelectasis vs PNA. She was having emesis so consider aspiration. PNA seems less likely since no fever or elevated white count. Consider related to CHF and atelectasis. Could be trauma related given her fall with lung contusin. Wean oxygen as tolerated. Encourage incentive spirometer use. Probably needs CT chest to further determine etiology. VQ scan with intermediate probability for PE. Moderate-sized perfusion defect at the posterior medial left lower lobe corresponding to a porch was an aneurysmal thoracic aorta. Large perfusion defect extending obliquely across the right mid to lower lung along the course of the major fissure and small or a central linear perfusion defect extending anteriorly along the course of a minor fissure. Additional fusion defects along the anterior, posterior and lateral periphery of the right mid to lower lung zone corresponding to the airspace opacities in the radiograph. CTA cannot be done due to renal dysfunction. she was started on IV Zosyn possible pneumonia. Blood cultures was obtained which was no growth to date CT chestDiagnostic without contrast done which showed very large right pleural effusion with concomitant atelectasis. Recent history of fall a month ago could be traumatic effusion Pulmonary consultation discussed with Pulmonary 08/07/2021 Status post thoracentesis 08/07/2021. Pleural fluid analysis with mostly lymphocytic effusion. Likely traumatic or malignancy. There are been noted loculated pleural effusion as well. pleural fluid cultures has been no growth. IV antibiotics is stopped Recheck chest x-ray 08/09/21 revealed moderate volume loculated right pleural effusion increased since the comparison on 08/07/2021 likely pleural masses. Pulmonary suggest she will need VATS from thoracic surgery and hence needs to be transferred Discussed with her daughter Charo of the phone and agreeable for the transfer Called transfer line at [facility] and discussed with the hospitalist at [facility] and and she is getting transferred there with bed availability for further treatment (2) Acute exacerbation of CHF (congestive heart failure): Code(s): I50.9 - Heart failure, unspecified Status: Acute Assessment and Plan: BNP 1150. CXR as mentioned above. NTP stopped. initially suspected and started on diuresis. however Lasix held due to soft BP. Echo showing EF 70%, Grade 1 diastolic dysfunction, mild valvular disease and moderate pulmonary hypertension.? Abdominal aorta appears to be dilated.?Trop negative x3. Wean O2 as tolerated. Stop lasix due to borderline blood pressure . Effusion less likely related to heart failure (3) Abnormal ECG: Code(s): R94.31 - Abnormal electrocardiogram [ECG] [EKG] Status: Acute Assessment and Plan: EKG reviewed showing ST and T wave changes in the anterior leads. Trop negative. Echo as above. No previous EKGs to compare. Rep
[2021-08-11 20:33] LABS: Glucose Pleural Fluid 98 mg/dL; LDH Pleural Fluid 270 U/L; Total Protein Pleural Fluid 3.8 g/dL
[2021-08-12 13:34] LABS: Albumin Pleural Fluid 2.2 g/dL
== END 2021-08-11 13:00 | disposition short-term general hospital (02) | DRG 205 ==
LOC: ANHED 18:20 → ANHIMU 22:31 → ANH3MED 08-08 18:17
PROVIDERS: Internal Medicine; Admitting Provider Family Medicine; Emergency Provider Emergency Medicine; PCP Internal Medicine; Visit Provider Internal Medicine
DX: J98.11 Atelectasis (principal); I50.31 Acute diastolic (congestive) heart failure; I13.0 Hypertensive heart and chronic kidney disease with heart failure and stage 1 through stage 4 chronic kidney disease, or unspecified chronic kidney disease; S27.321A Contusion of lung, unilateral, initial encounter; J90 Pleural effusion, not elsewhere classified; R09.02 Hypoxemia; N18.30 Chronic kidney disease, stage 3 unspecified; Z20.822 Contact with and (suspected) exposure to COVID-19; F32.A Depression, unspecified; E78.00 Pure hypercholesterolemia, unspecified; F03.90 Unspecified dementia, unspecified severity, without behavioral disturbance, psychotic disturbance, mood disturbance, and anxiety; E55.9 Vitamin D deficiency, unspecified; I25.10 Atherosclerotic heart disease of native coronary artery without angina pectoris; I48.91 Unspecified atrial fibrillation; I71.4 Abdominal aortic aneurysm, without rupture; W19.XXXA Unspecified fall, initial encounter; Z66 Do not resuscitate; Z95.1 Presence of aortocoronary bypass graft; Z87.891 Personal history of nicotine dependence
CPT/HCPCS: 32555; 36415; 71046; 71250; 76775; 78580; 80048; 80053; 80069; 82042; 82150; 82945; 83615; 83735; 83880; 84157; 84311; 84478; 84484; 85025; 85610; 85730; 87040; 87070; 87075; 87205; 88104; 88108; 88305; 89051; 92610; 93005; 93306; 96372; 96374; 96375; 97161; 97165; 99285; A9270; A9540; C9803; G0378; J1650; J1940; J2405; J2543; U0003; U0005